=== PATIENT | female | born 2000 | race Hispanic/Latino ===

== ENCOUNTER 2025-06-14 12:31 | Outpatient (CLI) | payer OTHER | END 2025-06-14 12:32 | disposition home or self-care (01) | LOC: CSHULT 12:31 | PROVIDERS: ATTEND Family Medicine | DX: O09.292 Supervision of pregnancy with other poor reproductive or obstetric history, second trimester (principal); Z3A.33 33 weeks gestation of pregnancy | CPT/HCPCS: 76805 ==

== ENCOUNTER 2025-06-26 10:28 | Outpatient (CLI) | payer OTHER | END 2025-06-26 10:29 | disposition home or self-care (01) | LOC: CSHLAB 10:28 | PROVIDERS: ATTEND Family Medicine | DX: Z01.812 Encounter for preprocedural laboratory examination (principal); O34.219 Maternal care for unspecified type scar from previous cesarean delivery; Z53.9 Procedure and treatment not carried out, unspecified reason | CPT/HCPCS: 85014; 85018; 85049; 86780; 86850; 86900; 86901; 87340 ==

== ENCOUNTER 2025-06-27 05:34 | Inpatient (IN) | payer MEDICAID, OTHER ==
[2025-06-26 11:43] LABS: Hematocrit 36.9 % (34.9-44.5); Hemoglobin 12.6 g/dL (12.0-15.5); Platelet Count 280 10x3/uL (150-450)
[2025-06-26 12:13] LABS: Hep B Surf Ag Non-Reactive S/CO (NonReactive)
[2025-06-26 12:15] LABS: Syphilis Antibody Index 0.03 S/CO (<1.00 Non-Reactive)
[2025-06-27 05:58] VITALS: BMI 31.4
[2025-06-27] MEDS ORDERED: Tranexamic Acid 1,000 MG/10 ML VIAL IVP PRN (05:58)
[2025-06-27] MEDS ORDERED: hydrALAZINE 20 MG/ML VIAL SLOW IVP PRN ×2 (05:58→11:50)
[2025-06-27] MEDS ORDERED: Carboprost 250 MCG/ML AMP IM PRN (05:58)
[2025-06-27] MEDS ORDERED: Methylergonovine 0.2 MG/ML VIAL IM PRN (05:58)
[2025-06-27] MEDS ORDERED: Bicitra 30 ML UDCUP PO PRN (05:58)
[2025-06-27] MEDS ORDERED: Ondansetron PF 4 MG/2 ML Vial IVP PRN ×4 (05:58→11:50)
[2025-06-27] MEDS ORDERED: Oxytocin 30 units/NS 500 ML 500 ML IV SCH (06:00)
[2025-06-27] MEDS ORDERED: diphenhydrAMINE 50 MG/ML VIAL IVP PRN (07:07)
[2025-06-27] MEDS ORDERED: Ketorolac Tromethamine 30 MG (1 mL) VIAL IVP PRN (07:07)
[2025-06-27] MEDS ORDERED: Meperidine HCl/PF 25 MG (1 mL) VIAL SLOW IVP PRN (07:07)
[2025-06-27] MEDS ORDERED: HYDROmorphone 0.5 MG/0.5 ML SYRINGE SLOW IVP PRN (07:07)
[2025-06-27] MEDS ORDERED: Communication Order-Pharmacy FS SCH (07:15)
[2025-06-27] MEDS: Famotidine/PF 20 mg/2ml Vial SLOW IVP PRN (07:15)
[2025-06-27] MEDS: Diphenoxylate HCl/Atropine Tablet PO PRN (08:03)
[2025-06-27] MEDS: Ketorolac Tromethamine 30 MG (1 mL) VIAL IVP SCH ×2 (09:30→14:11)
[2025-06-27] MEDS ORDERED: Bisacodyl 10 MG SUPP PR PRN (11:50)
[2025-06-27] MEDS ORDERED: Lanolin Ointment 7 GM TUBE TOP PRN (11:50)
[2025-06-27] MEDS ORDERED: diphenhydrAMINE 25 MG CAP PO PRN (11:50)
[2025-06-27] MEDS: PHENYLEPHRINE-NS 100 MCG/ML 10 ML SYRINGE ONE (11:57)
[2025-06-27] MEDS: Oxytocin 10 UNITS/ML VIAL ONE (11:57)
[2025-06-27] MEDS: Ferrous Sulfate 325 MG TAB PO SCH ×2 (13:59→19:43)
[2025-06-27] MEDS ORDERED: Meperidine HCl/PF 25 MG (1 mL) VIAL IM PRN (19:15)
[2025-06-27] MEDS: HYDROcodone/Acetaminophen 5/325 mg Tablet PO PRN (23:56)
[2025-06-28 03:51] LABS: Hematocrit 29.8 % (34.9-44.5); Hemoglobin 9.8 g/dL (12.0-15.5); Mean Corpuscular Hemoglobin 29.1 pg (27.0-33.0); Mean Corpuscular Volume 88.4 fL (81.6-98.3); Platelet Count 220 10x3/uL (150-450); Red Blood Cell (RBC) Count 3.37 10x6/uL (3.90-5.03); White Blood Cell (WBC) Count 11.25 10x3/uL (3.5-10.5)
[2025-06-28] MEDS: Simethicone Chewable 80 MG TAB PO PRN (09:53)
[2025-06-28] MEDS: Ibuprofen 800 MG TAB PO SCH (15:35)
[2025-06-28] MEDS: HYDROcodone/Acetaminophen 5/325 mg Tablet PO PRN (20:24)
[2025-06-29 11:29] VITALS: BP 117/82; TEMP 98.5
== END 2025-06-29 18:20 | disposition home or self-care (01) | DRG 788 ==
LOC: CSHLD 05:34 → CSHPP 11:10
PROVIDERS: ADMIT Family Medicine; ATTEND Family Medicine
PROC: 10D00Z1 Extraction of Products of Conception, Low, Open Approach (ICD-10-PCS; principal; 2025-06-28)
DX: O36.5930 Maternal care for other known or suspected poor fetal growth, third trimester, not applicable or unspecified (principal); O62.1 Secondary uterine inertia; O34.211 Maternal care for low transverse scar from previous cesarean delivery; Z37.0 Single live birth; Z3A.37 37 weeks gestation of pregnancy; Z79.899 Other long term (current) drug therapy; Z79.82 Long term (current) use of aspirin
CPT/HCPCS: 36415; 51702; 85014; 85018; 85027; 85049; 86780; 86850; 86900; 86901; 87340; 88307; C1889; J1308; J1885; J2250; J2274; J2590